=== PATIENT | male | born 1985 | race Caucasian/White ===

== ENCOUNTER 2021-05-18 01:45 | Emergency (ER) | payer OTHER ==
[~2021-05-18] VITALS: Ht 7.6 cm; Wt 122.7 kg
[2021-05-18 01:46] VITALS: TEMP 98.6
[2021-05-18 04:20] VITALS: BP 150/61; PULSE 80
== END 2021-05-18 04:27 | disposition home or self-care (01) ==
LOC: COL.ER 01:45
DX: J70.5 Respiratory conditions due to smoke inhalation (principal); R11.2 Nausea with vomiting, unspecified
CPT/HCPCS: J2405; J7030